=== PATIENT | female | born 1950 | race Caucasian/White ===

== ENCOUNTER 2023-01-28 13:15 | Inpatient (IN) | payer MEDICARE, OTHER ==
[2023-01-28] MEDS ORDERED: NALOXONE 0.4 MG/ML 1 ML VIAL IV PRN (17:05)
[2023-01-28] MEDS ORDERED: NALOXONE 0.4 MG/ML 1 ML VIAL IVP PRN (17:12)
[2023-01-28] MEDS ORDERED: ACETAMINOPHEN TAB 325 MG TAB PO PRN (17:12)
[2023-01-28] MEDS ORDERED: ALBUTEROL NEBULIZED 2.5 MG/3 ML INHALATION PRN (17:12)
[2023-01-28 17:29] LABS: ABG Base Excess 24.2 mmol/L; ABG Oxygen Saturation 78.4 % (94-97); ABG PCO2 66 mmHg (35-45); ABG PH 7.47 (7.35-7.45); ABG TCO2 50 mmol/L (19-24); Allen Test Performed? Yes
[2023-01-28] MEDS ORDERED: FUROSEMIDE 10 MG/ML 4 ML VIAL IV STA (17:35)
[2023-01-28 17:36] LABS: ABG PO2 40 mmHg (83-108)
[2023-01-28 17:37] LABS: ABG HCO3 48 mmol/L (21-25)
--- NOTE | 2023-01-28 18:05 | P.HPIM ---
History of Present Illness H&P Date: 01/28/23 Chief Complaint: Obtunded, hypoxia, dyspnea 72-year-old woman with medical history of COPD with chronic respiratory failure requiring 3-4 L nasal cannula, CHF, Parkinson's disease, hypertension, hyperlipidemia presented a [facility] with dyspnea. Patient was admi tted to [facility] in 01/26 with hypercarbic respiratory failure from presumed COPD exacerbation versus CHF exacerbation. At that time, there workup demonstrated a chest x-ray with pulmonary edema, normal troponin and baseline EKG and a negative respiratory viral panel. Patient was subsequent started on 40 mg of Lasix IV twice a day, steroids, DuoNeb's. On 01/27, patient had some improvement and reported dyspnea, however, today, patient was noted to be increasingly obtunded. Therefore, provider in the outside facility repeated ABG which demonstrate a pH of 7.35, pCO2 of 85. Patient was subsequently started on BiPAP at 12/5 with an FiO2 of 50%, and our facility was contacted for transfer for further management. Patient also had a repeat chest x-ray which showed findings of ongoing pulmonary edema consistent with admission chest x-ray. Patient could not participate in review of systems due to obtundation. Upon my evaluation, patient was hemodynamically stable, but obtunded. ABG was ordered which showed a pH of 7.46, pCO2 of 66, pO2 of 39, however, while the ABG was running, it was noted by respiratory therapy that patient's oxygen had not been connected appropriately and she had been essentially on room air since her arrival proximally one hour before. Patient was subsequently resumed on BiPAP at an FiO2 of 50%, 12/5 and was pulling tidal volumes between 250 and 350. Review of systems could not be completed due to patient's mental status Gen: in distress from dyspnea Eyes: PERRL, no scleral injection or icterus HENT: normocephalic, atraumatic, good hearing acuity, moist mucous membranes Neck: no tracheal deviation, full range of motion Resp: Impaired air exchange, tachypnea, accessory muscle use, bilateral diffuse crackles CVS: good distal perfusion x 4, no pitting edema, regular rate and rhythm without murmurs GI: soft, NTTP, ND, no hepatosplenomegaly : no suprapubic tenderness, no CVAT, garg catheter not present MSK: no clubbing, no cyanosis, no noted contractures of extremities Skin: no noted rashes, petechiae; temperature of skin is appropriate Neuro: moving all extremities without signs of weakness, CN II-XII intact Labs and imaging as above Assessment: Acute hypoxemic and hypercarbic respiratory failure superimposed on chronic hypoxemic and hypercarbic respiratory failure Acute on chronic congestive heart failure exacerbation, ejection fraction unknown COPD with mild exacerbation Hypertension Hyperlipidemia Parkinson's disease Plan: Vital signs reviewed and noted in HPI Lab work from [facility] was reviewed, notable findings included a CBC with a white blood cell count that is normal, platelets are normal, hemoglobin of 9.2. Chemistries were notable for hypernatremia to 149-150, no evidence of kidney dysfunction. Liver function tests are unremarkable. Prior ABGs were reviewed as well, and [facility] in 01/28 AM, pH was 7.35, pCO2 is 85, pO2 was 64 just prior to patient being placed on BiPAP. Chest x-ray reports on 01/26 and 01/28 reviewed from [facility] and findings were noted in HPI EKG in the outlying facility was personally interpreted and I noted sinus rhythm with bradycardia and with no evidence of ischemia. I placed an order for a stat repeat chest x-ray, the images returned to my personal interpretation is that there is right hemidiaphragmatic paralysis with diffuse interstitial infiltrates and alveolar infiltrates as well as increased pulmonary vascularity, cardiomegaly consistent with heart failure exacerbation CBC, basic metabolic panel, hepatic function tests, PT/PTT/INR, magnesium, lactic acid, pro-calcitonin, BNP orders were placed stat I discussed the case with the provider and [facility] and agreed with the need to escalate patient's care to our facility for further management of her worsening hypercarbic and hypoxemic respiratory failure as well as obtundation I gave an additional dose of Lasix 40 mg IV once, and started Lasix 40 mg IV twice a day I started the patient on every 4 hours DuoNeb's I started the patient on prednisone 40 mg daily I started the patient on BiPAP at 12/ with an FiO2 of 50% I placed orders for Garg catheter insertion with strict intake/uptake and daily weights Placed orders for echocardiogram I consulted pulmonology Patient is full code Patient's condition warranted 45 minutes of critical care time. Medications and Allergies Allergies Allergy/AdvReac Type Severity Reaction Status Date / Time carbidopa [From Sinemet] Allergy Unknown Verified 01/28/23 17:23 codeine Allergy Unknown Verified 01/28/23 17:23 levodopa [From Sinemet] Allergy Unknown Verified 01/28/23 17:23 Penicillins Allergy Unknown Verified 01/28/23 17:22 Physical Exam Osteopathic Statement: *. No significant issues noted on an osteopathic structural exam other than those noted in the History and Physical/Consult. Vitals: Vital Signs FiO2 01/28/23 17:30 50 01/28/23 17:08 50 Intake and Output 01/28/23 01/28/23 01/28/23 06:59 14:59 22:59 Other: Weight 72.4 kg Results Labs: Abnormal Lab Results - Last 24 Hours (Table) 01/28/23 Range/Units 17:26 ABG pH 7.47 H (7.35-7.45) ABG pCO2 66 H (35-45) mmHg ABG pO2 40 L* (83-108) mmHg ABG HCO3 48 H* (21-25) mmol/L ABG Total CO2 50 H (19-24) mmol/L ABG O2 Saturation 78.4 L (94-97) %
--- NOTE | 2023-01-28 18:21 | XR ---
EXAMINATION TYPE: XR chest 1V DATE OF EXAM: 01/28/2023 6:03 PM COMPARISON: Chest radiographs from TECHNIQUE: XR chest 1V . CLINICAL INDICATION:Female, 72 years old with history of respiratory failure; FINDINGS: Lungs/Pleura: Prominent interstitial lung markings are seen scattered throughout the lungs. Hazy appe arance of the right lung base and left upper lobe. No sizable pleural effusion or pneumothorax. Event ration of the right hemidiaphragm. Pulmonary vascularity: Unremarkable. Heart/mediastinum: Cardiomediastinal silhouette is prominent in size. Atherosclerotic calcifications are seen in the aorta. Musculoskeletal: Degenerative changes of the acromioclavicular and shoulder joints bilaterally. Degen erative changes of the thoracic spine. IMPRESSION: Multifocal airspace opacities concerning for pneumonia.
[2023-01-28 18:30] LABS: Basophils % (A) 0 %; Eosinophils % (A) 0 %; HGB 8.9 gm/dL (11.4-16.0); Hypochromasia Moderate; Lymphocytes # (A) 0.6 k/uL (1.0-4.8); Lymphocytes % (A) 9 %; MCH 28.5 pg (25.0-35.0); MCHC 30.8 g/dL (31.0-37.0); MCV 92.5 fL (80.0-100.0); Mean Platelet Volume 9.8; Monocytes # (A) 0.2 k/uL (0-1.0); Monocytes % (A) 3 %; Neutrophils # (A) 5.5 k/uL (1.3-7.7); Neutrophils % (A) 86 %; Platelet Count 166 k/uL (150-450); RBC 3.13 m/uL (3.80-5.40); RDW 14.2 % (11.5-15.5); WBC 6.4 k/uL (3.8-10.6)
[2023-01-28 18:38] LABS: ALT 16 U/L (4-34); AST 17 U/L (14-36); African American GFR (CKD) >90 (>60 ml/min/1.73 sqM); Albumin 3.2 g/dL (3.5-5.0); Alkaline Phosphatase 81 U/L (38-126); Bilirubin, Delta 0.2 mg/dL (0.0-0.2); Bilirubin,Unconjugated 0.1 mg/dL (0.0-1.1); Blood Urea Nitrogen 21 mg/dL (7-17); Calcium 8.2 mg/dL (8.4-10.2); Chloride 95 mmol/L (98-107); Glucose 126 mg/dL (74-99); Magnesium 2.1 mg/dL (1.6-2.3); Non-African American GFR(CKD) 89 (>60 ml/min/1.73 sqM); Sodium 144 mmol/L (137-145); Total Bilirubin 0.3 mg/dL (0.2-1.3); Total Protein 5.6 g/dL (6.3-8.2)
[2023-01-28 18:44] LABS: Partial Thromboplastin Time 22.5 sec (22.0-30.0); Prothrombin Time 10.8 sec (9.0-12.0)
[2023-01-28 18:45] LABS: Anion Gap 3 mmol/L
[2023-01-28 18:47] LABS: Carbon Dioxide 46 mmol/L (22-30)
[2023-01-28] MEDS ORDERED: IPRATROPIUM-ALBUTEROL 3 ML NEB INHALATION SCH (20:00)
[2023-01-28] MEDS: SYMBICORT 160-4.5 MCG INHALER INHALATION SCH (20:24)
[2023-01-28 20:29] LABS: Glucose,Whole Blood 115 mg/dL (70-110)
[2023-01-29] MEDS: HYDROcodone/APAP 5-325MG 1 EACH TAB PO SCH ×3 (02:02→21:15)
[2023-01-29] MEDS: FUROSEMIDE 10 MG/ML 4 ML VIAL IV SCH ×3 (02:28→21:14)
[2023-01-29] MEDS: HEPARIN SODIUM,PORCINE/PF 5,000 UNIT/0.5 ML SYRINGE SQ SCH ×3 (02:29→15:15)
[2023-01-29 06:51] LABS: Basophils # (A) 0.1 k/uL (0-0.2); Basophils % (A) 1 %; Eosinophils % (A) 0 %; HCT 29.5 % (34.0-46.0); HGB 9.2 gm/dL (11.4-16.0); Hypochromasia Moderate; Lymphocytes # (A) 1.2 k/uL (1.0-4.8); Lymphocytes % (A) 16 %; MCH 28.3 pg (25.0-35.0); MCV 91.2 fL (80.0-100.0); Mean Platelet Volume 9.3; Monocytes # (A) 0.6 k/uL (0-1.0); Monocytes % (A) 7 %; Neutrophils # (A) 5.7 k/uL (1.3-7.7); Neutrophils % (A) 75 %; Platelet Count 178 k/uL (150-450); RBC 3.24 m/uL (3.80-5.40); RDW 14.2 % (11.5-15.5); WBC 7.6 k/uL (3.8-10.6)
[2023-01-29 07:04] LABS: ALT 14 U/L (4-34); AST 16 U/L (14-36); African American GFR (CKD) >90 (>60 ml/min/1.73 sqM); Albumin 3.2 g/dL (3.5-5.0); Alkaline Phosphatase 84 U/L (38-126); Blood Urea Nitrogen 20 mg/dL (7-17); Calcium 8.1 mg/dL (8.4-10.2); Chloride 94 mmol/L (98-107); Glucose 81 mg/dL (74-99); Non-African American GFR(CKD) 82 (>60 ml/min/1.73 sqM); Potassium 3.4 mmol/L (3.5-5.1); Sodium 143 mmol/L (137-145); Total Bilirubin 0.5 mg/dL (0.2-1.3); Total Protein 5.5 g/dL (6.3-8.2)
[2023-01-29 07:10] LABS: Anion Gap 2 mmol/L
[2023-01-29 07:13] LABS: Carbon Dioxide 47 mmol/L (22-30)
[2023-01-29] MEDS ORDERED: polyethylene glycoL 3350 17 GM POWD.PACK PO PRN (07:59)
[2023-01-29] MEDS ORDERED: FLUTICASONE 50MCG/SPRAY NASAL 16GM EA NOSTRIL PRN (07:59)
[2023-01-29] MEDS: SYMBICORT 160-4.5 MCG INHALER INHALATION SCH ×2 (08:42→20:44)
[2023-01-29] MEDS: ALBUTEROL HFA INHALER INHALATION PRN ×4 (08:57→20:44)
[2023-01-29] MEDS ORDERED: AZITHROMYCIN 500 MG TAB PO SCH (09:00)
[2023-01-29] MEDS: CHOLECALCIFEROL 25 MCG (1000 IU) TABLET PO SCH (09:13)
[2023-01-29] MEDS: ISOSORBIDE MONONITRATE ER 30 MG TAB.ER.24H PO SCH (09:13)
[2023-01-29] MEDS: ATORVASTATIN 40 MG TAB PO SCH (09:14)
[2023-01-29] MEDS: predniSONE 20 MG TAB PO SCH (09:14)
[2023-01-29] MEDS: carvediloL 12.5 MG TAB PO SCH ×2 (09:17→17:01)
--- NOTE | 2023-01-29 09:46 | P.PN ---
Subjective Progress Note Date: 01/29/23 Patient is doing well today, breathing has significantly improved, mentation and obtundation has significantly improved. Gen: awake, alert HEENT: normocephalic, atraumatic, good hearing acuity, moist mucous membranes Resp: good air exchange, breathing comfortably with no accessory muscle use CVS: good distal perfusion x 4, GI: soft, NTTP, ND : no SPT, no CVAT, garg catheter is present MSK: no pitting edema, no clubbing Neuro: non-focal, moving all extremities Psych: cooperative, euthymic [facility] Hospital course: 72-year-old woman with medical history of COPD with chronic respiratory failure requiring 3-4 L nasal cannula, CHF, Parkinson's disease, hypertension, hyperli pidemia presented a [facility] with dyspnea. Patient was admitted to [facility] in 01/26 with hypercarbic respiratory failure from presumed COPD exacerbation versus CHF exacerbation. At that time, there workup demonstrated a chest x-ray with pulmonary edema, normal troponin and baseline EKG and a negative respiratory viral panel. Patient was subsequent started on 40 mg of Lasix IV twice a day, steroids, DuoNeb's. On 01/27, patient had some improvement and reported dyspnea, however, today, patient was noted to be increasingly obtunded. Therefore, provider in the outside facility repeated ABG which demonstrate a pH of 7.35, pCO2 of 85. Patient was subsequently started on BiPAP at 12/5 with an FiO2 of 50%, and our facility was contacted for transfer for further management. Patient also had a repeat chest x-ray which showed findings of ongoing pulmonary edema consistent with admission chest x-ray. Upon initial evaluation, patient was hemodynamically stable, but obtunded. ABG was ordered which showed a pH of 7.46, pCO2 of 66, pO2 of 39, however, while the ABG was running, it was noted by respiratory therapy that patient's oxygen had not been connected appropriately and she had been essentially on room air since her arrival proximally one hour before. Patient was subsequently resumed on BiPAP at an FiO2 of 50%, 12/5 and was pulling tidal volumes between 250 and 350. Assessment: Acute hypoxemic and hypercarbic respiratory failure superimposed on chronic hypoxemic and hypercarbic respiratory failure Acute on chronic congestive heart failure exacerbation, ejection fraction unknown COPD with mild exacerbation Hypertension Hyperlipidemia Parkinson's disease Plan: Vital signs reviewed, patient is afebrile, 176/66, heart rate 68, 93% on 3 L nasal cannula CBC shows anemia down to 9.2, this is stable. Chemistries show potassium of 3.4, chloride of 94, bicarbonate 47, urine of 20, creatinine 0.74, these are stable from admission. Liver function tests showed a low total protein of 5.5, low albumin at 3.2. Pro-calcitonin is 0.07. BNP was 1540. CBC, basic metabolic panel, magnesium replaced for tomorrow Continue Lasix 40 mg IV twice a day Continue patient on every 4 hours DuoNeb's Continue patient on prednisone 40 mg daily Placed orders for echocardiogram, pending Pulmonology consult pending Patient is DO NOT RESUSCITATE/DO NOT INTUBATE Objective - Vital Signs Vital signs: Vital Signs Temp 98.7 F 01/29/23 04:00 Pulse 68 01/29/23 04:00 Resp 26 H 01/29/23 04:00 BP 176/66 01/29/23 04:00 Pulse Ox 96 01/28/23 20:00 FiO2 50 01/29/23 08:48 Intake & Output 01/28/23 01/29/23 01/29/23 18:59 06:59 18:59 Intake Total 20 40 Output Total 1850 1580 Balance 20 -1810 -1580 Weight 72.4 kg 79 kg Intake: IV 20 40 Invasive Line 1 10 20 Invasive Line 2 10 20 Output: Urine 1850 1580 Other: Voiding Method Indwelling Catheter Indwelling Catheter - Labs CBC & Chem 7: 01/29/23 05:19 01/29/23 05:19 Labs: Abnormal Lab Results - Last 24 Hours (Table) 01/28/23 01/28/23 01/28/23 Range/Units 17:26 18:12 18:12 RBC 3.13 L (3.80-5.40) m/uL Hgb 8.9 L (11.4-16.0) gm/dL Hct 29.0 L (34.0-46.0) % MCHC 30.8 L (31.0-37.0) g/dL Lymphocytes # 0.6 L (1.0-4.8) k/uL ABG pH 7.47 H (7.35-7.45) ABG pCO2 66 H (35-45) mmHg ABG pO2 40 L* (83-108) mmHg ABG HCO3 48 H* (21-25) mmol/L ABG Total CO2 50 H (19-24) mmol/L ABG O2 Saturation 78.4 L (94-97) % Potassium (3.5-5.1) mmol/L Chloride 95 L (98-107) mmol/L Carbon Dioxide 46 H* (22-30) mmol/L BUN 21 H (7-17) mg/dL Glucose 126 H (74-99) mg/dL POC Glucose (mg/dL) (70-110) mg/dL Plasma Lactic Acid Juan (0.7-2.0) mmol/L Calcium 8.2 L (8.4-10.2) mg/dL Total Protein 5.6 L (6.3-8.2) g/dL Albumin 3.2 L (3.5-5.0) g/dL 01/28/23 01/28/23 01/29/23 Range/Units 18:12 20:27 05:19 RBC 3.24 L (3.80-5.40) m/uL Hgb 9.2 L (11.4-16.0) gm/dL Hct 29.5 L (34.0-46.0) % MCHC (31.0-37.0) g/dL Lymphocytes # (1.0-4.8) k/uL ABG pH (7.35-7.45) ABG pCO2 (35-45) mmHg ABG pO2 (83-108) mmHg ABG HCO3 (21-25) mmol/L ABG Total CO2 (19-24) mmol/L ABG O2 Saturation (94-97) % Potassium (3.5-5.1) mmol/L Chloride (98-107) mmol/L Carbon Dioxide (22-30) mmol/L BUN (7-17) mg/dL Glucose (74-99) mg/dL POC Glucose (mg/dL) 115 H (70-110) mg/dL Plasma Lactic Acid Juan 0.5 L (0.7-2.0) mmol/L Calcium (8.4-10.2) mg/dL Total Protein (6.3-8.2) g/dL Albumin (3.5-5.0) g/dL 01/29/23 Range/Units 05:19 RBC (3.80-5.40) m/uL Hgb (11.4-16.0) gm/dL Hct (34.0-46.0) % MCHC (31.0-37.0) g/dL Lymphocytes # (1.0-4.8) k/uL ABG pH (7.35-7.45) ABG pCO2 (35-45) mmHg ABG pO2 (83-108) mmHg ABG HCO3 (21-25) mmol/L ABG Total CO2 (19-24) mmol/L ABG O2 Saturation (94-97) % Potassium 3.4 L (3.5-5.1) mmol/L Chloride 94 L (98-107) mmol/L Carbon Dioxide 47 H* (22-30) mmol/L BUN 20 H (7-17) mg/dL Glucose (74-99) mg/dL POC Glucose (mg/dL) (70-110) mg/dL Plasma Lactic Acid Juan (0.7-2.0) mmol/L Calcium 8.1 L (8.4-10.2) mg/dL Total Protein 5.5 L (6.3-8.2) g/dL Albumin 3.2 L (3.5-5.0) g/dL
--- NOTE | 2023-01-29 10:34 | CA ---
Transthoracic Echo Report Name: Jasmin Gonzalez Age: 72 Gender: F : 1950 Exam Date: 01/29/2023 07:27 Exam Location: [facility] Ht (in): 65 Wt (lb): 174 Ordering Physician: Adam Cummings MD Attending/Referring Phys: Pediatric Pathologist Bianca Lynn RDCS Procedure CPT: Indications: volume overload Cardiac Hx: Technical Quality: Fair Contrast 1: Total Dose (mL): Contrast 2: Total Dose (mL): MEASUREMENTS (Male / Female) Normal Values 2D ECHO LV Diastolic Diameter PLAX 4.8 cm 4.2 - 5.9 / 3.9 - 5.3 cm LV Systolic Diameter PLAX 3.6 cm IVS Diastolic Thickness 1.3 cm 0.6 - 1.0 / 0.6 - 0.9 cm LVPW Diastolic Thickness 1.2 cm 0.6 - 1.0 / 0.6 - 0.9 cm LV Relative Wall Thickness 0.5 RV Internal Dim ED PLAX 3.6 cm LA Systolic Diameter LX 3.1 cm 3.0 - 4.0 / 2.7 - 3.8 cm LV Diastolic Volume MOD 4C 161.6 cm??? LV Systolic Volume MOD 4C 79.6 cm??? LV Ejection Fraction MOD 4C 50.7 % LV Diastolic Length 4C 8.7 cm LV Systolic Length 4C 7.1 cm LV Diastolic Volume MOD 2C 97.2 cm??? LV Systolic Volume MOD 2C 49.0 cm??? LV Ejection Fraction MOD 2C 49.6 % LV Diastolic Length 2C 8.5 cm LV Systolic Length 2C 6.8 cm LA Volume 57.2 cm??? 18 - 58 / 22 - 52 cm??? M-MODE Aortic Root Diameter MM 2.8 cm MV E Point Septal Separation 0.8 cm AV Cusp Separation MM 1.9 cm DOPPLER AV Peak Velocity 148.2 cm/s AV Peak Gradient 8.8 mmHg MV Area PHT 2.5 cm??? Mitral E Point Velocity 112.5 cm/s Mitral A Point Velocity 119.5 cm/s Mitral E to A Ratio 0.9 MV Deceleration Time 298.7 ms MV E' Velocity 7.0 cm/s Mitral E to MV E' Ratio 16.1 TR Peak Velocity 291.0 cm/s TR Peak Gradient 33.9 mmHg Right Ventricular Systolic Press 38.1 mmHg FINDINGS Left Ventricle Left ventricular ejection fraction is estimated at 50-55 %. Normal left ventricular systolic function with no obvious regional wall motion abnormalities. Left ventricular cavity size normal. Mild concentric left ventricular hypertrophy. Right Ventricle Mild right ventricular dilatation. Mild pulmonary hypertension. Right Atrium Normal right atrial size. Left Atrium Mildly increased left atrial volume. Mitral Valve Mitral valve thickened. Mitral annular calcification. Aortic Valve Trileaflet aortic valve. No aortic valve stenosis or regurgitation. Tricuspid Valve Structurally normal tricuspid valve. Mild tricuspid regurgitation. Pulmonic Valve Structurally normal pulmonic valve. Pericardium Normal pericardium. No pericardial effusion. Aorta Normal size aortic root and proximal ascending aorta. CONCLUSIONS Normal left ventricular dimension and systolic function Mild to moderate mitral regurgitation Trileaflet aortic valve was no stenosis or regurgitation Previewed by: Dr. Joni Scott MD (Electronically Signed) Final Date: 29 January 2023 10:33
[2023-01-29] MEDS ORDERED: Potassium Replacement Protocol 1 EACH MISC MISCELLANE PRN (10:48)
[2023-01-29] MEDS: POTASSIUM CHLORIDE ER 20 MEQ TAB.ER PO SCH ×2 (11:53→13:41)
--- NOTE | 2023-01-29 12:54 | P.CNPUL ---
History of Present Illness Consult date: 01/29/23 Requesting physician: Adam Cummings Reason for consult: dyspnea, COPD Chief complaint: Shortness of breath History of present illness: This is a 72-year-old female known history of COPD, no history of chronic hypoxic respiratory failure, maintaining traction at home at 3-4 L via nasal cannula. History of hypertension, Parkinson's disease, patient lives in [place], she is not being followed by pulmonary specialists. Few days ago, the patient was admitted to [facility] with mostly symptoms of shortness of breath and cough. Patient was found to have congestive heart failure based on her chest x-ray/pulmonary edema. Patient was treated with diuretics, steroids, and bronchodilators. While at [facility], patient developed worsening obtundation, and worsening hypercapnia. Her pCO2 was as high as 85, however her pH remained relatively acceptable in the range of 7.35. Patient was transferred to our facility at [facility], upon admission she was placed on BiPAP, with significant improvement in her pCO2 down to 66, with a pH of 7.47. Based on her blood gases, the patient obviously has chronic hypercapnia with excellent metabolic compensation, her bicarb is 47 today on the electrolytes. Chest x-ray showed evidence of congestive heart failure, pro-calcitonin was 0.07, no evidence of pneumonia. No evidence of leukocytosis on her CBC. Clinically the patient is responding well to treatment with bronchodilators and to treatment with diuretics. BNP level on admission was 1540 Review of Systems Constitutional: Negative HEENT: Negative Pulmonary: As noted in HPI Cardiac: As noted in HPI Hematologic: Negative GI: Negative Genitourinary: Negative Musculoskeletal: Negative Psychiatric: Negative Neurologic: Negative Skin: Endocrine: Negative Past Medical History Past Medical History: Heart Failure, COPD, CVA/TIA, Hyperlipidemia, Myocardial Infarction (DC) Additional Past Medical History / Comment(s): Parkinsons, COPD, 3.5LNC at home, quit smoking 2012, anxiety depression, chronic C02 retainer Last Myocardial Infarction Date:: 2012 History of Any Multi-Drug Resistant Organisms: None Reported Past Surgical History: Cholecystectomy, Heart Catheterization With Stent, Tonsillectomy Past Anesthesia/Blood Transfusion Reactions: No Reported Reaction Date of Last Stent Placement:: 2012 Smoking Status: Former smoker - Past Family History Father Family Medical History: Unable to Obtain Mother Family Medical History: Unable to Obtain Medications and Allergies Home Medications Medication Instructions Recorded Confirmed Type Albuterol Inhaler [Ventolin Hfa 1 - 2 puff INHALATION RT-Q6H PRN 01/28/23 01/28/23 History Inhaler] Atorvastatin [Lipitor] 40 mg PO DAILY 01/28/23 01/28/23 History Cholecalciferol [Vitamin D3 (25 50 mcg PO DAILY 01/28/23 01/28/23 History Mcg = 1000 Iu)] Fluticasone Nasal [place] [Flonase 1 spray EA NOSTRIL DAILY PRN 01/28/23 01/28/23 History Nasal [place]] Furosemide [Lasix] 40 mg PO DAILY 01/28/23 01/28/23 History HYDROcodone/APAP 5-325MG [[place] 1 tab PO Q8H 01/28/23 01/28/23 History 5-325] Ibuprofen [Motrin Ib] 600 mg PO Q6H PRN 01/28/23 01/28/23 History Isosorbide Mononitrate ER [Imdur] 30 mg PO DAILY 01/28/23 01/28/23 History Nitroglycerin Sl Tabs [Nitrostat] 0.4 mg SUBLINGUAL Q5M PRN 01/28/23 01/28/23 History Pregabalin [Lyrica] 150 mg PO HS 01/28/23 01/28/23 History carvediloL [Coreg] 12.5 mg PO BID 01/28/23 01/28/23 History polyethylene glycoL 3350 [Miralax] 17 gm PO TID PRN 01/28/23 01/28/23 History rOPINIRole HCL [Requip] 0.5 mg PO QID 01/28/23 01/28/23 History Allergies Allergy/AdvReac Type Severity Reaction Status Date / Time carbidopa [From Sinemet] Allergy Unknown Verified 01/28/23 20:31 codeine Allergy Unknown Verified 01/28/23 20:31 levodopa [From Sinemet] Allergy Unknown Verified 01/28/23 20:31 Penicillins Allergy Unknown Verified 01/28/23 20:31 Physical Exam Vitals: Vital Signs Temp Pulse Resp BP Pulse Ox FiO2 01/29/23 12:00 98.4 F 52 L 20 113/56 90 L 01/29/23 08:48 50 01/29/23 08:00 98.6 F 65 22 176/79 01/29/23 04:00 98.7 F 68 26 H 176/66 01/29/23 03:51 50 01/29/23 02:00 69 24 01/29/23 00:00 98.5 F 69 24 184/67 01/28/23 23:30 50 01/28/23 20:24 50 01/28/23 20:00 97.8 F 58 L 24 172/113 96 01/28/23 18:39 91 L 50 01/28/23 18:32 98.6 F 64 26 H 145/78 88 L 01/28/23 17:30 50 01/28/23 17:08 50 Intake and Output 01/28/23 01/29/23 01/29/23 22:59 06:59 14:59 Intake Total 40 20 118 Output Total 0682 190 2138 Balance -9237 -227 -9893 Intake: IV 40 20 Invasive Line 1 20 10 Invasive Line 2 20 10 Oral 118 Output: Urine 9649 964 8924 Other: Voiding Method Indwelling Catheter Indwelling Catheter Indwelling Catheter Weight 72.4 kg 79 kg Physical Exam: Revealed a 72-year-old female in no distress, presently on 3 L nasal cannula, O2 saturation is 90% BiPAP is at bedside set at 12/5/50% Head: Atraumatic, normocephalic. HEENT:[Neck is supple.] [No neck masses.] [No thyromegaly.] [No JVD.] Chest: Symmetrical chest expansion, diminished breath sounds at the bases with crackles bilaterally. Cardiac Exam: Distant S1 and S2. no S3 gallop, no murmur.] Abdomen: [Soft, nontender, no megaly, no rebound, no guarding, normal bowel sounds.] Extremities: [No clubbing, no edema, no cyanosis.] Neurological Exam: [No focal neurologic deficit.] Alert oriented 3. Psychiatric: Normal mood affect and normal mental status examination. Skin: No rashes. Results - Laboratory Findings CBC and BMP: 01/29/23 05:19 01/29/23 05:19 ABG ABG pH 7.47 (7.35-7.45) H 01/28/23 17:26 ABG pCO2 66 mmHg (35-45) H 01/28/23 17:26 ABG pO2 40 mmHg (83-108) L* 01/28/23 17:26 ABG O2 Saturation 78.4 % (94-97) L 01/28/23 17:26 PT/INR, D-dimer PT 10.8 sec (9.0-12.0) 01/28/23 18:12 INR 1.0 (<1.2) 01/28/23 18:12 Abnormal lab findings: Abnormal Labs 01/28/23 01/28/23 01/28/23 17:26 18:12 18:12 RBC 3.13 L Hgb 8.9 L Hct 29.0 L MCHC 30.8 L Lymphocytes # 0.6 L ABG pH 7.47 H ABG pCO2 66 H ABG pO2 40 L* ABG HCO3 48 H* ABG Total CO2 50 H ABG O2 Saturation 78.4 L Potassium Chloride 95 L Carbon Dioxide 46 H* BUN 21 H Glucose 126 H POC Glucose (mg/dL) Plasma Lactic Acid Juan Calcium 8.2 L Total Protein 5.6 L Albumin 3.2 L 01/28/23 01/28/23 01/29/23 18:12 20:27 05:19 RBC 3.24 L Hgb 9.2 L Hct 29.5 L MCHC Lymphocytes # ABG pH ABG pCO2 ABG pO2 ABG HCO3 ABG Total CO2 ABG O2 Saturation Potassium Chloride Carbon Dioxide BUN Glucose POC Glucose (mg/dL) 115 H Plasma Lactic Acid Juan 0.5 L Calcium Total Protein Albumin 01/29/23 05:19 RBC Hgb Hct MCHC Lymphocytes # ABG pH ABG pCO2 ABG pO2 ABG HCO3 ABG Total CO2 ABG O2 Saturation Potassium 3.4 L Chloride 94 L Carbon Dioxide 47 H* BUN 20 H Glucose POC Glucose (mg/dL) Plasma Lactic Acid Juan Calcium 8.1 L Total Protein 5.5 L Albumin 3.2 L - Diagnostic Findings Chest x-ray: image reviewed (As noted in HPI) Assessment and Plan Assessment: Impression: Acute on chronic hypoxic and hypercapnic respiratory failure, secondary to underlying COPD and COPD exacerbation as well as underlying acute congestive heart failure. Ejection fraction is presently unknown. Benign essential hypertension Acute exacerbation of COPD Dyslipidemia History of Parkinson's disease Acute metabolic encephalopathy secondary to CO2 narcosis. Recommendation: Recommendation: Agree with the present treatment plan including diuretics, bronchodilators, Continue oral prednisone and titrate over the next couple of weeks. Use BiPAP as needed and titrate FiO2 accordingly Continue to monitor daily I's and O's Check echocardiogram for LV function Continue updrafts Continue Symbicort Continue GI and DVT prophylaxis Discontinue antibiotics, since pro calcitonin level is 0.07 We will continue to follow Time with Patient: Greater than 30
[2023-01-29] MEDS: PREGABALIN 75 MG CAP PO SCH (21:15)
[2023-01-30] MEDS: HEPARIN SODIUM,PORCINE/PF 5,000 UNIT/0.5 ML SYRINGE SQ SCH ×3 (06:04→18:09)
[2023-01-30 06:09] LABS: Basophils % (A) 1 %; Eosinophils # (A) 0.1 k/uL (0-0.7); Eosinophils % (A) 1 %; HCT 31.1 % (34.0-46.0); HGB 9.7 gm/dL (11.4-16.0); Hypochromasia Slight; Lymphocytes # (A) 1.4 k/uL (1.0-4.8); Lymphocytes % (A) 25 %; MCH 28.4 pg (25.0-35.0); MCHC 31.3 g/dL (31.0-37.0); MCV 90.9 fL (80.0-100.0); Mean Platelet Volume 9.1; Monocytes # (A) 0.4 k/uL (0-1.0); Monocytes % (A) 8 %; Neutrophils # (A) 3.6 k/uL (1.3-7.7); Neutrophils % (A) 64 %; Platelet Count 179 k/uL (150-450); RBC 3.42 m/uL (3.80-5.40); RDW 14.1 % (11.5-15.5); WBC 5.7 k/uL (3.8-10.6)
[2023-01-30 06:27] LABS: Chloride 94 mmol/L (98-107)
[2023-01-30 06:29] LABS: African American GFR (CKD) >90 (>60 ml/min/1.73 sqM); Blood Urea Nitrogen 22 mg/dL (7-17); Calcium 8.3 mg/dL (8.4-10.2); Glucose 83 mg/dL (74-99); Magnesium 2.1 mg/dL (1.6-2.3); Non-African American GFR(CKD) 88 (>60 ml/min/1.73 sqM); Potassium 3.7 mmol/L (3.5-5.1); Sodium 141 mmol/L (137-145)
[2023-01-30 06:36] LABS: Anion Gap 2 mmol/L
[2023-01-30 06:41] LABS: Carbon Dioxide 45 mmol/L (22-30)
[2023-01-30] MEDS: HYDROcodone/APAP 5-325MG 1 EACH TAB PO SCH ×3 (06:53→18:10)
[2023-01-30] MEDS: carvediloL 12.5 MG TAB PO SCH ×2 (06:54→18:09)
--- NOTE | 2023-01-30 07:22 | XR ---
EXAMINATION TYPE: XR chest 1V portable DATE OF EXAM: 01/30/2023 7:05 AM COMPARISON: Chest radiographs from 01/28/2023 TECHNIQUE: XR chest 1V portable Portable AP radiograph of the chest. CLINICAL INDICATION:Female, 72 years old with history of CHF; FINDINGS: Lungs/Pleura: The patient's head obscures the right apex. Prominent interstitial lung markings are ag ain seen scattered through the lungs. Blunting of the right costophrenic angle with adjacent airspace opacities. Bandlike opacity within the left midlung. Heart/mediastinum: Cardiomediastinal silhouette is prominent in size. Atherosclerotic calcifications are seen in the aorta. Musculoskeletal: No acute osseous pathology. IMPRESSION: Cardiomegaly, pulmonary vascular congestion and small right pleural effusion. Correlate with BNP for congestive heart failure. Superimposed infectious process is not excluded.
[2023-01-30] MEDS: SYMBICORT 160-4.5 MCG INHALER INHALATION SCH ×2 (08:34→21:07)
[2023-01-30] MEDS: ALBUTEROL HFA INHALER INHALATION PRN ×4 (08:35→21:07)
[2023-01-30] MEDS: ISOSORBIDE MONONITRATE ER 30 MG TAB.ER.24H PO SCH (09:29)
[2023-01-30] MEDS: CHOLECALCIFEROL 25 MCG (1000 IU) TABLET PO SCH (09:29)
[2023-01-30] MEDS: ATORVASTATIN 40 MG TAB PO SCH (09:29)
[2023-01-30] MEDS: predniSONE 20 MG TAB PO SCH (09:29)
[2023-01-30] MEDS: FUROSEMIDE 10 MG/ML 4 ML VIAL IV SCH (09:30)
--- NOTE | 2023-01-30 10:43 | P.PN ---
Subjective Progress Note Date: 01/30/23 Patient is doing well today, patient continues to be weak. Oxygenation has improved to baseline, but has generalized weakness and debility Gen: awake, alert HEENT: normocephalic, atraumatic, good hearing acuity, moist mucous membranes Resp: good air exchange, breathing comfortably with no accessory muscle use CVS: good distal perfusion x 4, GI: soft, NTTP, ND : no SPT, no CVAT, garg catheter is present MSK: no pitting edema, no clubbing Neuro: non-focal, moving all extremities Psych: cooperative, euthymic mood Hospital course: 72-year-old woman with medical history of COPD with chronic respiratory failure requiring 3-4 L nasal cannula, CHF, Parkinson's disease, hypertension, hyperlipidemia presented a [facility] with dyspnea. Patient was admitted to [facility] in 01/26 with hypercarbic respiratory failure from presumed COPD exacerbation versus CHF exacerbation. At that time, there workup demonstrated a chest x-ray with pulmonary edema, normal troponin and baseline EKG and a negative respiratory viral panel. Patient was subsequent st arted on 40 mg of Lasix IV twice a day, steroids, DuoNeb's. On 01/27, patient had some improvement and reported dyspnea, however, today, patient was noted to be increasingly obtunded. Therefore, provider in the outside facility repeated ABG which demonstrate a pH of 7.35, pCO2 of 85. Patient was subsequently started on BiPAP at 12/5 with an FiO2 of 50%, and our facility was contacted for transfer for further management. Patient also had a repeat chest x-ray which showed findings of ongoing pulmonary edema consistent with admission chest x- ray. Upon initial evaluation, patient was hemodynamically stable, but obtunded. ABG was ordered which showed a pH of 7.46, pCO2 of 66, pO2 of 39, however, while the ABG was running, it was noted by respiratory therapy that patient's oxygen had not been connected appropriately and she had been essentially on room air since her arrival proximally one hour before. Patient was subsequently resumed on BiPAP at an FiO2 of 50%, 12/5 and was pulling tidal volumes between 250 and 350. Patient was started on standing DuoNeb nebulizers, prednisone 40 mg daily, azithromycin 500 mg daily, Lasix 40 mg twice a day. By the following day, patient was weaned back to her baseline oxygen requirement of 3 L of nasal cannula but still had dyspnea with minimal exertion. Echocardiogram was completed and demonstrated preserved ejection fraction, mild to moderate mitral regurgitation. Patient's pro-calcitonin return to 0.06, and antibiotics were discontinued. Patient's BNP returned at 1560 consistent with volume overload. Patient was seen by PT/OT who recommended rehab. Assessment: Acute hypoxemic and hypercarbic respiratory failure superimposed on chronic hypoxemic and hypercarbic respiratory failure Acute on chronic congestive heart failure exacerbation, ejection fraction unknown COPD with mild exacerbation Hypertension Hyperlipidemia Parkinson's disease Plan: Today, patient is afebrile, 185/65, heart rate 64, 94% on 3 L nasal cannula. CBC shows hemoglobin of 9.7, otherwise unremarkable, stable from admission. Chemistries show chloride of 94, bicarbonate 45, BUN 22, creatinine of 0.67, improved from admission Magnesium is 2.1. Repeat CBC, basic metabolic panel, magnesium tomorrow Echocardiogram reviewed, mild to moderate mitral regurgitation, normal left ventricular dimension and systolic function Continue Lasix 40 mg IV twice a day Continue patient on every 4 hours DuoNeb's Continue patient on prednisone 40 mg daily Discussed with PT/OT, patient required significant help ambulating the hallway with periods of significant unsteadiness with near syncope, patient would be nefit from rehab inpatient Patient is DO NOT RESUSCITATE/DO NOT INTUBATE Objective - Vital Signs Vital signs: Vital Signs Temp 98.0 F 01/30/23 04:00 Pulse 64 01/30/23 04:00 Resp 18 01/30/23 04:00 BP 185/65 01/30/23 04:00 Pulse Ox 92 L 01/30/23 08:38 FiO2 50 01/29/23 08:48 Intake & Output 01/29/23 01/30/23 01/30/23 18:59 06:59 18:59 Intake Total 1154 100 Output Total 1580 600 Balance -426 -600 100 Weight 68 kg Intake: Oral 1154 100 Output: Urine 1580 600 Other: Voiding Method Indwelling Catheter Indwelling Catheter # Voids 1 - Labs CBC & Chem 7: 01/30/23 05:30 01/30/23 05:30 Labs: Abnormal Lab Results - Last 24 Hours (Table) 01/30/23 01/30/23 Range/Units 05:30 05:30 RBC 3.42 L (3.80-5.40) m/uL Hgb 9.7 L (11.4-16.0) gm/dL Hct 31.1 L (34.0-46.0) % Chloride 94 L (98-107) mmol/L Carbon Dioxide 45 H* (22-30) mmol/L BUN 22 H (7-17) mg/dL Calcium 8.3 L (8.4-10.2) mg/dL
--- NOTE | 2023-01-30 13:30 | P.PN ---
Subjective Progress Note Date: 01/30/23 Principal diagnosis: Acute on chronic hypoxic and hypercapnic respiratory failure, secondary to underlying COPD and COPD exacerbation as well as underlying acute congestive heart failure. This is a 72-year-old female known history of COPD, no history of chronic hypoxic respiratory failure, maintaining traction at home at 3-4 L via nasal cannula. History of hypertension, Parkinson's disease, patient lives in [place], she is not being followed by pulmonary specialists. Few days ago, the patient was admitted to [facility] with mostly symptoms of shortness of breath and cough. Patient was found to have congestive heart failure based on her chest x-ray/pulmonary edema. Patient was treated with diuretics, steroids, and bronchodilators. While at [facility], patient developed worsening obtundation, and worsening hypercapnia. Her pCO2 was as high as 85, however her pH remained relatively acceptable in the range of 7.35. Patient was transferred to our facility at [facility], upon admission she was placed on BiPAP, with significant improvement in her pCO2 down to 66, with a pH of 7.47. Based on her blood gases, the patient obviously has chronic hypercapnia with excellent metabolic compensation, her bicarb is 47 today on the electrolytes. Chest x-ray showed evidence of congestive heart failure, pro-calcitonin was 0.07, no evidence of pneumonia. No evidence of leukocytosis on her CBC. Clinically the patient is responding well to treatment with bronchodilators and to treatment with diuretics. BNP level on admission was 1540 Reevaluated today on 01/30/2023, patient is feeling better today, breathing easier. Daughter is at bedside, patient is on 3 L nasal cannula and O2 sats is 90 ranging between 92 up to 96%. Blood pressure is 122/60, patient is not in any distress, sitting at a bedside chair. WBC is 5.7 hemoglobin is 9.7. Basic metabolic profile is normal except for bicarb of 45. Chest x-ray is showing improvement in her interstitial edema, but she seems to have more right lower lobe atelectasis, overall there is definite improvement in the chest x-ray appearance and in her CHF appearance. Objective - Vital Signs Vital signs: Vital Signs Temp 97.7 F 01/30/23 08:00 Pulse 70 01/30/23 08:00 Resp 20 01/30/23 08:00 BP 122/60 01/30/23 08:00 Pulse Ox 92 L 01/30/23 08:38 FiO2 50 01/29/23 08:48 Intake & Output 01/29/23 01/30/23 01/30/23 18:59 06:59 18:59 Intake Total 1154 100 Output Total 1580 600 Balance -426 -600 100 Weight 68 kg Intake: Oral 1154 100 Output: Urine 1580 600 Other: Voiding Method Indwelling Catheter Indwelling Catheter Indwelling Catheter # Voids 1 - Exam Physical Exam: Revealed a 72-year-old female in no distress, presently on 3 L nasal cannula, Head: Atraumatic, normocephalic. HEENT:[Neck is supple.] [No neck masses.] [No thyromegaly.] [No JVD.] Chest: Symmetrical chest expansion, diminished breath sounds at the bases , no crackles. Cardiac Exam: Distant S1 and S2. no S3 gallop, no murmur.] Abdomen: [Soft, nontender, no megaly, no rebound, no guarding, normal bowel sounds.] Extremities: [No clubbing, no edema, no cyanosis.] Neurological Exam: [No focal neurologic deficit.] Alert oriented 3. Psychiatric: Normal mood affect and normal mental status examination. Skin: No rashes. - Labs CBC & Chem 7: 01/30/23 05:30 01/30/23 05:30 Labs: Abnormal Lab Results - Last 24 Hours (Table) 01/30/23 01/30/23 Range/Units 05:30 05:30 RBC 3.42 L (3.80-5.40) m/uL Hgb 9.7 L (11.4-16.0) gm/dL Hct 31.1 L (34.0-46.0) % Chloride 94 L (98-107) mmol/L Carbon Dioxide 45 H* (22-30) mmol/L BUN 22 H (7-17) mg/dL Calcium 8.3 L (8.4-10.2) mg/dL Assessment and Plan Assessment: Impression: Acute on chronic hypoxic and hypercapnic respiratory failure, secondary to underlying COPD and COPD exacerbation as well as underlying acute congestive heart failure. Preserved LV function ejection fraction of 50-55% Benign essential hypertension Acute exacerbation of COPD Dyslipidemia History of Parkinson's disease Acute metabolic encephalopathy secondary to CO2 narcosis. Resolved. Recommendation: Continue diuretics and bronchodilators. Change Lasix to 40 mg by mouth twice a day Echocardiogram showed good LV function Continue updrafts Continue Symbicort Continue GI and DVT prophylaxis consider discharge planning in the next 24 hours. Follow-up on outpatient basis post discharge. We will continue to follow Time with Patient: Less than 30
[2023-01-30] MEDS: FUROSEMIDE 40 MG TAB PO SCH (18:09)
[2023-01-30] MEDS: PREGABALIN 75 MG CAP PO SCH (21:02)
[2023-01-31] MEDS: HEPARIN SODIUM,PORCINE/PF 5,000 UNIT/0.5 ML SYRINGE SQ SCH ×3 (00:50→17:38)
[2023-01-31] MEDS: HYDROcodone/APAP 5-325MG 1 EACH TAB PO SCH ×3 (00:50→17:37)
[2023-01-31] MEDS ORDERED: INSULIN DETEMIR (LEVEMIR) 100 UNIT/ML SYR SQ SCH (07:15)
[2023-01-31] MEDS: ALBUTEROL HFA INHALER INHALATION PRN ×4 (07:44→21:17)
[2023-01-31] MEDS: SYMBICORT 160-4.5 MCG INHALER INHALATION SCH ×2 (07:44→21:17)
--- NOTE | 2023-01-31 10:54 | P.PN ---
Subjective Progress Note Date: 01/31/23 Patient is requiring bipap and a little more lethargic today. Pending insurance auth for rehab. Gen: awake, alert HEENT: normocephalic, atraumatic, good hearing acuity, moist mucous membranes Resp: good air exchange, breathing comfortably with no accessory muscle use CVS: good distal perfusion x 4, GI: soft, NTTP, ND : no SPT, no CVAT, garg catheter is present MSK: no pitting edema, no clubbing Neuro: non-focal, moving all extremities Psych: cooperative, euthymic mood Hospital course: 72-year-old woman with medical history of COPD with chronic respiratory failure requiring 3-4 L nasal cannula, CHF, Parkinson's disease, hypertension, hyperlipidemia presented a [facility] with dyspnea. Patient was admitted to [facility] in 01/26 with hypercarbic respiratory failure from presumed COPD exacerbation versus CHF exacerbation. At that time, there workup demonstrated a chest x-ray with pulmonary edema, normal troponin and baseline EKG and a negative respiratory viral panel. Patient was subsequent started on 40 mg of Lasix IV twice a day, steroids, DuoNeb's. On 01/27, patient had some improvement and reported dyspnea, however, today, patient was noted to be increasingly obtunded. Therefore, provider in the outside facility repeated ABG which demonstrate a pH of 7.35, pCO2 of 85. Patient was subsequently started on BiPAP at 12/5 with an FiO2 of 50%, and our facility was contacted for transfer for further management. Patient also had a repeat chest x-ray which showed findings of ongoing pulmonary edema consistent with admission chest x- ray. Upon initial evaluation, patient was hemodynamically stable, but obtunded. ABG was ordered which showed a pH of 7.46, pCO2 of 66, pO2 of 39, however, while the ABG was running, it was noted by respiratory therapy that patient's oxygen had not been connected appropriately and she had been essentially on room air since her arrival proximally one hour before. Patient was subsequently res umed on BiPAP at an FiO2 of 50%, 12/5 and was pulling tidal volumes between 250 and 350. Patient was started on standing DuoNeb nebulizers, prednisone 40 mg daily, azithromycin 500 mg daily, Lasix 40 mg twice a day. By the following day, patient was weaned back to her baseline oxygen requirement of 3 L of nasal cannula but still had dyspnea with minimal exertion. Echocardiogram was completed and demonstrated preserved ejection fraction, mild to moderate mitral regurgitation. Patient's pro-calcitonin return to 0.06, and antibiotics were discontinued. Patient's BNP returned at 1560 consistent with volume overload. Patient was seen by PT/OT who recommended rehab. Assessment: Acute hypoxemic and hypercarbic respiratory failure superimposed on chronic hypoxemic and hypercarbic respiratory failure Acute on chronic congestive heart failure exacerbation, ejection fraction unknown COPD with mild exacerbation Hypertension Hyperlipidemia Parkinson's disease Plan: Today, patient is afebrile, 166/74, 74, 97% on BIPAP /, FIO2 50% Repeat CBC, basic metabolic panel, magnesium tomorrow Continue Lasix 40 mg IV twice a day Continue patient on every 4 hours DuoNeb's Continue patient on prednisone 40 mg daily Patient is DO NOT RESUSCITATE/DO NOT INTUBATE Objective - Vital Signs Vital signs: Vital Signs Temp 98 F 01/31/23 04:00 Pulse 74 01/31/23 04:00 Resp 22 01/31/23 05:15 BP 166/74 01/31/23 04:00 Pulse Ox 97 01/31/23 05:15 FiO2 50 01/31/23 07:45 Intake & Output 01/30/23 01/31/23 01/31/23 18:59 06:59 18:59 Intake Total 460 Output Total 400 200 Balance 60 -200 Intake: Oral 460 Output: Urine 400 200 Other: Voiding Method Indwelling Catheter External Catheter # Voids 1 - Labs CBC & Chem 7: 01/30/23 05:30 01/30/23 05:30
[2023-01-31] MEDS: ISOSORBIDE MONONITRATE ER 30 MG TAB.ER.24H PO SCH (11:40)
[2023-01-31] MEDS: FUROSEMIDE 40 MG TAB PO SCH ×2 (11:40→17:37)
[2023-01-31] MEDS: carvediloL 12.5 MG TAB PO SCH ×2 (11:40→17:37)
[2023-01-31] MEDS: predniSONE 20 MG TAB PO SCH (11:40)
[2023-01-31] MEDS: CHOLECALCIFEROL 25 MCG (1000 IU) TABLET PO SCH (11:40)
[2023-01-31] MEDS: ATORVASTATIN 40 MG TAB PO SCH (11:41)
--- NOTE | 2023-01-31 13:30 | P.PN ---
Subjective Progress Note Date: 01/31/23 Principal diagnosis: Acute on chronic hypoxic and hypercapnic respiratory failure, secondary to underlying COPD and COPD exacerbation as well as underlying acute congestive heart failure. This is a 72-year-old female known history of COPD, no history of chronic hypoxic respiratory failure, maintaining traction at home at 3-4 L via nasal cannula. History of hypertension, Parkinson's disease, patient lives in [place], she is not being followed by pulmonary specialists. Few days ago, the patient was admitted to [facility] with mostly symptoms of shortness of breath and cough. Patient was found to have congestive heart failure based on her chest x-ray/pulmonary edema. Patient was treated with diuretics, steroids, and bronchodilators. While at [facility], patient developed worsening obtundation, and worsening hypercapnia. Her pCO2 was as high as 85, however her pH remained relatively acceptable in the range of 7.35. Patient was transferred to our facility at [facility], upon admission she was placed on BiPAP, with significant improvement in her pCO2 down to 66, with a pH of 7.47. Based on her blood gases, the patient obviously has chronic hypercapnia with excellent metabolic compensation, her bicarb is 47 today on the electrolytes. Chest x-ray showed evidence of congestive heart failure, pro-calcitonin was 0.07, no evidence of pneumonia. No evidence of leukocytosis on her CBC. Clinically the patient is responding well to treatment with bronchodilators and to treatment with diuretics. BNP level on admission was 1540 Reevaluated today on 01/30/2023, patient is feeling better today, breathing easier. Daughter is at bedside, patient is on 3 L nasal cannula and O2 sats is 90 ranging between 92 up to 96%. Blood pressure is 122/60, patient is not in any distress, sitting at a bedside chair. WBC is 5.7 hemoglobin is 9.7. Basic metabolic profile is normal except for bicarb of 45. Chest x-ray is showing improvement in her interstitial edema, but she seems to have more right lower lobe atelectasis, overall there is definite improvement in the chest x-ray appearance and in her CHF appearance. Reevaluated today on 01/31/2023, patient is now on BiPAP, apparently she developed some obtundation early this morning and she had to be placed on BiPAP although the patient was refusing to have it on. She is on 50% 11/02, tidal volumes are ranging between 250 and 350. Patient does not seem to be in any distress. Remains on diuretics, and bronchodilators, patient is expected to be vaguely discharged to a rehab facility. Patient may benefit from BiPAP on outpatient basis and I explained to the daughter that this may be of value as long as she is willing to use it. No labs were done today. Remind you her pro calcitonin level on admission was 0.07. Antibiotics were discontinued. Objective - Vital Signs Vital signs: Vital Signs Temp 98.8 F 01/31/23 09:35 Pulse 69 01/31/23 11:15 Resp 16 01/31/23 11:15 BP 172/72 01/31/23 11:15 Pulse Ox 99 01/31/23 11:15 FiO2 50 01/31/23 11:15 Intake & Output 01/30/23 01/31/23 01/31/23 18:59 06:59 18:59 Intake Total 460 580 Output Total 400 400 Balance 60 180 Intake: Oral 460 580 Output: Urine 400 400 Other: Voiding Method Indwelling Catheter External Catheter External Catheter # Voids 1 - Exam Physical Exam: Revealed a 72-year-old female in no distress, presently on BiPAP. Head: Atraumatic, normocephalic. HEENT:[Neck is supple.] [No neck masses.] [No thyromegaly.] [No JVD.] Chest: Symmetrical chest expansion, diminished breath sounds at the bases , no crackles. Cardiac Exam: Distant S1 and S2. no S3 gallop, no murmur.] Abdomen: [Soft, nontender, no megaly, no rebound, no guarding, normal bowel sounds.] Extremities: [No clubbing, no edema, no cyanosis.] Neurological Exam: [No focal neurologic deficit.] Alert oriented 3. Psychiatric: Normal mood affect and normal mental status examination. Skin: No rashes. - Labs CBC & Chem 7: 01/30/23 05:30 01/30/23 05:30 Assessment and Plan Assessment: Impression: Acute on chronic hypoxic and hypercapnic respiratory failure, secondary to underlying COPD and COPD exacerbation as well as underlying acute congestive heart failure. Preserved LV function ejection fraction of 50-55% Benign essential hypertension Acute exacerbation of COPD Dyslipidemia History of Parkinson's disease Acute metabolic encephalopathy secondary to CO2 narcosis. Resolved. Recommendation: Continue diuretics and bronchodilators. Continue updrafts Continue Symbicort Consider home BiPAP. With the same settings, to be used as needed. Continue GI and DVT prophylaxis Agree with discharge to rehab facility.. We will continue to follow Time with Patient: Less than 30
[2023-01-31] MEDS: PREGABALIN 75 MG CAP PO SCH (22:04)
[2023-02-01] MEDS: HEPARIN SODIUM,PORCINE/PF 5,000 UNIT/0.5 ML SYRINGE SQ SCH ×3 (03:46→17:22)
[2023-02-01] MEDS: HYDROcodone/APAP 5-325MG 1 EACH TAB PO SCH ×3 (05:27→17:21)
[2023-02-01] MEDS: SYMBICORT 160-4.5 MCG INHALER INHALATION SCH ×2 (08:30→21:22)
[2023-02-01 08:51] LABS: Basophils % (A) 1 %; Eosinophils % (A) 1 %; HCT 31.1 % (34.0-46.0); HGB 9.6 gm/dL (11.4-16.0); Hypochromasia Moderate; Lymphocytes # (A) 1.4 k/uL (1.0-4.8); Lymphocytes % (A) 26 %; MCH 28.1 pg (25.0-35.0); MCHC 30.8 g/dL (31.0-37.0); MCV 91.1 fL (80.0-100.0); Mean Platelet Volume 9.2; Monocytes # (A) 0.3 k/uL (0-1.0); Monocytes % (A) 5 %; Neutrophils # (A) 3.7 k/uL (1.3-7.7); Neutrophils % (A) 66 %; Platelet Count 170 k/uL (150-450); RBC 3.42 m/uL (3.80-5.40); RDW 14.2 % (11.5-15.5); WBC 5.6 k/uL (3.8-10.6)
[2023-02-01 08:59] LABS: African American GFR (CKD) >90 (>60 ml/min/1.73 sqM); Blood Urea Nitrogen 21 mg/dL (7-17); Calcium 8.2 mg/dL (8.4-10.2); Chloride 93 mmol/L (98-107); Glucose 79 mg/dL (74-99); Magnesium 2.2 mg/dL (1.6-2.3); Non-African American GFR(CKD) 87 (>60 ml/min/1.73 sqM); Potassium 3.6 mmol/L (3.5-5.1); Sodium 142 mmol/L (137-145)
[2023-02-01 09:06] LABS: Anion Gap 5 mmol/L
[2023-02-01 09:12] LABS: Carbon Dioxide 44 mmol/L (22-30)
[2023-02-01] MEDS: ISOSORBIDE MONONITRATE ER 30 MG TAB.ER.24H PO SCH (12:04)
[2023-02-01] MEDS: acetaZOLAMIDE 250 MG TAB PO SCH ×2 (12:04→22:19)
[2023-02-01] MEDS: predniSONE 20 MG TAB PO SCH (12:05)
[2023-02-01] MEDS: ATORVASTATIN 40 MG TAB PO SCH (12:05)
[2023-02-01] MEDS: carvediloL 12.5 MG TAB PO SCH ×2 (12:05→17:21)
[2023-02-01] MEDS: CHOLECALCIFEROL 25 MCG (1000 IU) TABLET PO SCH (12:05)
[2023-02-01] MEDS: FUROSEMIDE 40 MG TAB PO SCH ×2 (12:05→17:21)
[2023-02-01] MEDS ORDERED: ARTIFICIAL TEARS-HYPROMELLOSE DROPS 15 ML BTL BOTH EYES PRN (13:13)
--- NOTE | 2023-02-01 13:34 | P.PN ---
Subjective Progress Note Date: 02/01/23 Principal diagnosis: Acute on chronic hypoxic and hypercapnic respiratory failure, secondary to underlying COPD and COPD exacerbation as well as underlying acute congestive heart failure. This is a 72-year-old female known history of COPD, no history of chronic hypoxic respiratory failure, maintaining traction at home at 3-4 L via nasal cannula. History of hypertension, Parkinson's disease, patient lives in [place], she is not being followed by pulmonary specialists. Few days ago, the patient was admitted to [facility] with mostly symptoms of shortness of breath and cough. Patient was found to have congestive heart failure based on her chest x-ray/pulmonary edema. Patient was treated with diuretics, steroids, and bronchodilators. While at [facility], patient developed worsening obtundation, and worsening hypercapnia. Her pCO2 was as high as 85, however her pH remained relatively acceptable in the range of 7.35. Patient was transferred to our facility at [facility], upon admission she was placed on BiPAP, with significant improvement in her pCO2 down to 66, with a pH of 7.47. Based on her blood gases, the patient obviously has chronic hypercapnia with excellent metabolic compensation, her bicarb is 47 today on the electrolytes. Chest x-ray showed evidence of congestive heart failure, pro-calcitonin was 0.07, no evidence of pneumonia. No evidence of leukocytosis on her CBC. Clinically the patient is responding well to treatment with bronchodilators and to treatment with diuretics. BNP level on admission was 1540 Reevaluated today on 01/30/2023, patient is feeling better today, breathing easier. Daughter is at bedside, patient is on 3 L nasal cannula and O2 sats is 90 ranging between 92 up to 96%. Blood pressure is 122/60, patient is not in any distress, sitting at a bedside chair. WBC is 5.7 hemoglobin is 9.7. Basic metabolic profile is normal except for bicarb of 45. Chest x-ray is showing improvement in her interstitial edema, but she seems to have more right lower lobe atelectasis, overall there is definite improvement in the chest x-ray appearance and in her CHF appearance. Reevaluated today on 01/31/2023, patient is now on BiPAP, apparently she developed some obtundation early this morning and she had to be placed on BiPAP although the patient was refusing to have it on. She is on 50% 10/23, tidal volumes are ranging between 250 and 350. Patient does not seem to be in any distress. Remains on diuretics, and bronchodilators, patient is expected to be vaguely discharged to a rehab facility. Patient may benefit from BiPAP on outpatient basis and I explained to the daughter that this may be of value as long as she is willing to use it. No labs were done today. Remind you her pro calcitonin level on admission was 0.07. Antibiotics were discontinued. Reevaluated today on 02/01/2023, patient remains on BiPAP, percent FiO2, 12/5, seems to be tolerating the BiPAP quite well. Discharge planning to a rehab facility is in progress. Hoping we can get the patient to have BiPAP at home or at the rehab facility that she is going to. This will need to be used as ne eded. Overall the patient is improving, responding well to bronchodilators and to diuretics. WBC count is 5.6 hemoglobin is 9.6 electrolytes are normal bicarb is 44 which is expected. Renal profile is normal Objective - Vital Signs Vital signs: Vital Signs Temp 98.1 F 02/01/23 09:35 Pulse 72 02/01/23 11:45 Resp 16 02/01/23 11:45 BP 164/57 02/01/23 11:45 Pulse Ox 97 02/01/23 11:45 FiO2 50 02/01/23 08:35 Intake & Output 01/31/23 02/01/23 02/01/23 18:59 06:59 18:59 Intake Total 938 358 Output Total 500 600 Balance 438 -600 358 Weight 69 kg Intake: Oral 938 358 Output: Urine 500 600 Other: Voiding Method External Catheter External Catheter External Catheter - Exam Physical Exam: Revealed a 72-year-old female in no distress, on BiPAP. 10/23/50% Head: Atraumatic, normocephalic. HEENT:[Neck is supple.] [No neck masses.] [No thyromegaly.] [No JVD.] Chest: Symmetrical chest expansion, diminished breath sounds at the bases , no crackles. Cardiac Exam: Distant S1 and S2. no S3 gallop, no murmur.] Abdomen: [Soft, nontender, no megaly, no rebound, no guarding, normal bowel sounds.] Extremities: [No clubbing, no edema, no cyanosis.] Neurological Exam: [No focal neurologic deficit.] Alert oriented 3. Psychiatric: Normal mood affect and normal mental status examination. Skin: No rashes. - Labs CBC & Chem 7: 02/01/23 07:49 02/01/23 07:49 Labs: Abnormal Lab Results - Last 24 Hours (Table) 02/01/23 02/01/23 Range/Units 07:49 07:49 RBC 3.42 L (3.80-5.40) m/uL Hgb 9.6 L (11.4-16.0) gm/dL Hct 31.1 L (34.0-46.0) % MCHC 30.8 L (31.0-37.0) g/dL Chloride 93 L (98-107) mmol/L Carbon Dioxide 44 H* (22-30) mmol/L BUN 21 H (7-17) mg/dL Calcium 8.2 L (8.4-10.2) mg/dL Assessment and Plan Assessment: Impression: Acute on chronic hypoxic and hypercapnic respiratory failure, secondary to underlying COPD and COPD exacerbation as well as underlying acute congestive heart failure. Preserved LV function ejection fraction of 50-55% Benign essential hypertension Acute exacerbation of COPD Dyslipidemia History of Parkinson's disease Acute metabolic encephalopathy secondary to CO2 narcosis. Resolved. Recommendation: Continue diuretics presently on Lasix 40 mg by mouth twice a day. Prednisone 40 mg taper over the next 2 weeks Continue updrafts Continue Symbicort home BiPAP If approved by her insurance. Continue GI and DVT prophylaxis Agree with discharge to rehab facility.. We will continue to follow Time with Patient: Less than 30
[2023-02-01] MEDS: PREGABALIN 75 MG CAP PO SCH (22:19)
[2023-02-02] MEDS: HEPARIN SODIUM,PORCINE/PF 5,000 UNIT/0.5 ML SYRINGE SQ SCH ×2 (01:45→08:27)
[2023-02-02] MEDS: HYDROcodone/APAP 5-325MG 1 EACH TAB PO SCH ×2 (01:46→11:06)
[2023-02-02 05:05] VITALS: RESP 18
--- NOTE | 2023-02-02 05:46 | P.PN ---
Subjective Progress Note Date: 02/01/23 72-year-old woman with medical history of COPD with chronic respiratory failure requiring 3-4 L nasal cannula, CHF, Parkinson's disease, hypertension, hyperlipidemia presented a [facility] with dyspnea. Patient was admitted to [facility] in 01/26 with hypercarbic respiratory failure from presumed COPD exacerbation versus CHF exacerbation. At that time, there workup demonstrated a chest x-ray with pulmonary edema, normal troponin and baseline EKG and a negative respiratory viral panel. Patient was subsequent started on 40 mg of Lasix IV twice a day, steroids, DuoNeb's. On 01/27, patient had some improvement and reported dyspnea, however, today, patient was noted to be increasingly obtunded. Therefore, provider in the outside facility repeated ABG which demonstrate a pH of 7.35, pCO2 of 85. Patient was subsequently started on BiPAP at 12/5 with an FiO2 of 50%, and our facility was contacted for transfer for further management. Patient also had a repeat chest x-ray which showed findings of ongoing pulmonary edema consistent with admission chest x- ray. Upon initial evaluation, patient was hemodynamically stable, but obtunded. ABG was ordered which showed a pH of 7.46, pCO2 of 66, pO2 of 39, however, while the ABG was running, it was noted by respiratory therapy that patient's oxygen had not been connected appropriately and she had been essentially on room air since her arrival proximally one hour before. Patient was subsequently resumed on BiPAP at an FiO2 of 50%, 12/5 and was pulling tidal volumes between 250 and 350. Patient was started on standing DuoNeb nebulizers, prednisone 40 mg daily, azithromycin 500 mg daily, Lasix 40 mg twice a day. By the following day, patient was weaned back to her baseline oxygen requirement of 3 L of nasal cannula but still had dyspnea with minimal exertion. Echocardiogram was completed and demonstrated preserved ejection fraction, mild to moderate mitral regurgitation. Patient's pro-calcitonin return to 0.06, and antibiotics were discontinued. Patient's BNP returned at 1560 consistent with volume overload. Patient was seen by PT/OT who recommended rehab. Patient was seen and examined. Currently on BiPAP 12/5, rate of 12, FiO2 50%. Sleeping, difficult to arouse. Gen: awake, alert HEENT: normocephalic, atraumatic, good hearing acuity, moist mucous membranes Resp: good air exchange, breathing comfortably with no accessory muscle use CVS: good distal perfusion x 4, GI: soft, NTTP, ND : no SPT, no CVAT, garg catheter is present MSK: no pitting edema, no clubbing Neuro: non-focal, moving all extremities Psych: Sleeping, difficult to arouse. #Acute hypoxemic and hypercarbic respiratory failure superimposed on chronic hypoxemic and hypercarbic respiratory failure #Acute on chronic congestive heart failure exacerbation, ejection fraction unknown #COPD with mild exacerbation #Hypertension #Hyperlipidemia #Parkinson's disease Based on my assessment of this patient, this patient meets a moderate complexity level of care. I have reviewed the following php consultant notes: Pulmonology note , continue diuretics, prednisone taper over 2 weeks, continue updraft and Symbicort, home BiPAP if approved by insurance. I have reviewed the results of the following tests: CBC shows hemoglobin 9.6. BMP shows chloride of 93, bicarbonate 44, BUN of 21, calcium of 8.2. I have ordered the following tests: None. I have discussed the care of this patient with the following independent historian: None. I have independently interpreted the following test below: None. I have discussed the management of this patient with the following physician: None. This patient has a moderate risk of morbidity due to the following reasons: Patient has a diastolic CHF with severe exacerbation leading to acute hypoxemic and hypercarbic respiratory failure superimposed on chronic hypoxemic and hypercarbic respiratory failure which poses a threat to life or bodily function. Patient initially denied SNF by insurance. Peer to peer to be done at 3PM. Objective - Vital Signs Vital signs: Vital Signs Temp 98.1 F 02/01/23 09:35 Pulse 72 02/01/23 11:45 Resp 16 02/01/23 11:45 BP 164/57 02/01/23 11:45 Pulse Ox 97 02/01/23 11:45 FiO2 50 02/01/23 08:35 Intake & Output 01/31/23 02/01/23 02/01/23 18:59 06:59 18:59 Intake Total 938 476 Output Total 500 600 Balance 438 -600 476 Weight 69 kg Intake: Oral 938 476 Output: Urine 500 600 Other: Voiding Method External Catheter External Catheter External Catheter - Labs CBC & Chem 7: 02/01/23 07:49 02/01/23 07:49 Labs: Abnormal Lab Results - Last 24 Hours (Table) 02/01/23 02/01/23 Range/Units 07:49 07:49 RBC 3.42 L (3.80-5.40) m/uL Hgb 9.6 L (11.4-16.0) gm/dL Hct 31.1 L (34.0-46.0) % MCHC 30.8 L (31.0-37.0) g/dL Chloride 93 L (98-107) mmol/L Carbon Dioxide 44 H* (22-30) mmol/L BUN 21 H (7-17) mg/dL Calcium 8.2 L (8.4-10.2) mg/dL
--- NOTE | 2023-02-02 06:01 | P.DS ---
Providers Date of admission: 01/28/23 13:15 Expected date of discharge: 02/02/23 Attending physician: Fadi Pulliam MD Consults: 01/28/23 17:11 Consult Physician Routine Consulting Provider: Erich Wood Consult Reason/Comments: hypercarbic respiratory failure Do you want consulting provider notified?: Yes Primary care physician: Physician Nonstaff Hospital Course: 72-year-old woman with medical history of COPD with chronic respiratory failure requiring 3-4 L nasal cannula, CHF, Parkinson's disease, hypertension, hyperlipidemia presented a [facility] with dyspnea. Patient was admitted to [facility] in 01/26 with hypercarbic respiratory failure from presumed COPD exacerbation versus CHF exacerbation. At that time, there workup demonstrated a chest x-ray with pulmonary edema, normal troponin and baseline EKG and a negative respiratory viral panel. Patient was subsequent started on 40 mg of Lasix IV twice a day, steroids, DuoNeb's. On 01/27, patient had some improvement and reported dyspnea, however, today, patient was noted to be increasingly obtunded. Therefore, provider in the outside facility repeated ABG which demonstrate a pH of 7.35, pCO2 of 85. Patient was subsequently started on BiPAP at 12/5 with an FiO2 of 50%, and our facility was contacted for transfer for further management. Patient also had a repeat chest x-ray which showed findings of ongoing pulmonary edema consistent with admission chest x- ray. Upon initial evaluation, patient was hemodynamically stable, but obtunded. ABG was ordered which showed a pH of 7.46, pCO2 of 66, pO2 of 39, however, while the ABG was running, it was noted by respiratory therapy that patient's oxygen had not been connected appropriately and she had been essentially on room air since her arrival proximally one hour before. Patient was subsequently resumed on BiPAP at an FiO2 of 50%, 12/5 and was pulling tidal volumes between 250 and 350. Patient was started on standing DuoNeb nebulizers, prednisone 40 mg daily, azithromycin 500 mg daily, Lasix 40 mg twice a day. By the following day, patient was weaned back to her baseline oxygen requirement of 3 L of nasal cannula but still had dyspnea with minimal exertion. Echocardiogram was completed and demonstrated preserved ejection fraction, mild to moderate mitral regurgitation. Patient's pro-calcitonin return to 0.06, and antibiotics were discontinued. Patient's BNP returned at 1560 consistent with volume overload. Patient was seen by PT/OT who recommended rehab. I was able to do a peer to peer yesterday with insurance yesterday and got her approved for SNF. She is scheduled to go to [facility] today. Patient was seen and examined. Currently on BiPAP 12/5, rate of 12, FiO2 50%. Patient sleepy and difficulty to arouse but wakes up to prompting. Pertinent studies include echocardiogram, chest x-ray. Patient will be discharges to SNF with the following instructions: Patient will need BiPAP at 12/5, FiO2 of 50% while sleeping. She will need 2-3L nasal cannula to maintain O2 saturation > 92% while awake. Take all medications as advised. Follow up with PCP within 1-2 days of discharge. Follow up with Cardiology and Pulmonology within 1 week of discharge. Take all medications as necessary. Diet: low salt, cardiac. General: non toxic, no distress, appears at stated age Derm: warm, dry Head: atraumatic, normocephalic, symmetric, poor dentition Eyes: EOMI, no lid lag, anicteric sclera Mouth: no lip lesion, mucus membranes moist Cardiovascular: S1S2 reg, no murmur, positive posterior tibial pulse bilateral, Lungs: Decreased breath sounds bilateral, no rhonchi, no rales , no accessory muscle use Abdominal: soft, nontender to palpation, no guarding, no appreciable organomegaly Ext: no gross muscle atrophy, no edema, no contractures Neuro: no focal neuro deficits Psych: Alert, oriented, appropriate affect Discharge diagnosis: #Acute hypoxemic and hypercarbic respiratory failure superimposed on chronic hypoxemic and hypercarbic respiratory failure #Acute on chronic congestive heart failure exacerbation, ejection fraction unknown #COPD with mild exacerbation #Hypertension #Hyperlipidemia #Parkinson's disease This complex discharge took 45 minutes to complete. Patient Condition at Discharge: Stable Plan - Discharge Summary Discharge Rx Participant: No New Discharge Prescriptions: New Budesonide-Formot 160-4.5 Mcg [Symbicort 160-4.5 Mcg Inhaler] 2 puff INHALATION RT-BID #1 each acetaZOLAMIDE [Diamox] 250 mg PO BID tab Pregabalin [Lyrica] 150 mg PO HS #3 cap Acetaminophen Tab [Tylenol] 650 mg PO Q6HR PRN tab PRN Reason: Mild Pain (Scale 1 To 3) HYDROcodone/APAP 5-325MG [Hammond 5-325] 1 each PO Q8H PRN #9 tab PRN Reason: Pain Continue Atorvastatin [Lipitor] 40 mg PO DAILY Albuterol Inhaler [Ventolin Hfa Inhaler] 1 - 2 puff INHALATION RT-Q6H PRN PRN Reason: Shortness Of Breath carvediloL [Coreg] 12.5 mg PO BID Fluticasone Nasal [place] [Flonase Nasal [place]] 1 spray EA NOSTRIL DAILY PRN PRN Reason: Allergy Symptoms Cholecalciferol [Vitamin D3 (25 Mcg = 1000 Iu)] 50 mcg PO DAILY Pregabalin [Lyrica] 150 mg PO HS #3 cap HYDROcodone/APAP 5-325MG [Hammond 5-325] 1 tab PO Q8H #9 tab Isosorbide Mononitrate ER [Imdur] 30 mg PO DAILY polyethylene glycoL 3350 [Miralax] 17 gm PO TID PRN PRN Reason: Constipation rOPINIRole HCL [Requip] 0.5 mg PO QID Nitroglycerin Sl Tabs [Nitrostat] 0.4 mg SUBLINGUAL Q5M PRN PRN Reason: Chest Pain Changed Furosemide [Lasix] 40 mg PO BID #60 tab Discontinued Ibuprofen [Motrin Ib] 600 mg PO Q6H PRN PRN Reason: Pain Or Fever > 100.5 Discharge Medication List Albuterol Inhaler [Ventolin Hfa Inhaler] 1 - 2 puff INHALATION RT-Q6H PRN 01/28/23 [History] Atorvastatin [Lipitor] 40 mg PO DAILY 01/28/23 [History] Cholecalciferol [Vitamin D3 (25 Mcg = 1000 Iu)] 50 mcg PO DAILY 01/28/23 [History] Fluticasone Nasal [place] [Flonase Nasal [place]] 1 spray EA NOSTRIL DAILY PRN 01/28/23 [History] Isosorbide Mononitrate ER [Imdur] 30 mg PO DAILY 01/28/23 [History] Nitroglycerin Sl Tabs [Nitrostat] 0.4 mg SUBLINGUAL Q5M PRN 01/28/23 [History] carvediloL [Coreg] 12.5 mg PO BID 01/28/23 [History] polyethylene glycoL 3350 [Miralax] 17 gm PO TID PRN 01/28/23 [History] rOPINIRole HCL [Requip] 0.5 mg PO QID 01/28/23 [History] Acetaminophen Tab [Tylenol] 650 mg PO Q6HR PRN tab 01/31/23 [Rx] Budesonide-Formot 160-4.5 Mcg [Symbicort 160-4.5 Mcg Inhaler] 2 puff INHALATION RT-BID #1 each 01/31/23 [Rx] Furosemide [Lasix] 40 mg PO BID #60 tab 01/31/23 [Rx] HYDROcodone/APAP 5-325MG [Hammond 5-325] 1 tab PO Q8H #9 tab 01/31/23 [Rx] Pregabalin [Lyrica] 150 mg PO HS #3 cap 01/31/23 [Rx] HYDROcodone/APAP 5-325MG [Hammond 5-325] 1 each PO Q8H PRN #9 tab 02/02/23 [Rx] Pregabalin [Lyrica] 150 mg PO HS #3 cap 02/02/23 [Rx] acetaZOLAMIDE [Diamox] 250 mg PO BID tab 02/02/23 [Rx] Follow up Appointment(s)/Referral(s): Evan Carmona MD [STAFF PHYSICIAN] - 1 Week Joni Scott MD [STAFF PHYSICIAN] - 1 Week Nonstaff,Physician [Primary Care Provider] - 1-2 Days Activity/Diet/Wound Care/Special Instructions: Patient will need BiPAP at 12/5, FiO2 of 50% while sleeping. She will need 2-3L nasal cannula to maintain O2 saturation > 92% while awake. Take all medications as advised. Follow up with PCP within 1-2 days of discharge. Follow up with Cardiology and Pulmonology within 1 week of discharge. Take all medications as necessary. Diet: low salt, cardiac. Discharge Disposition: TRANSFER TO SNF/ECF
[2023-02-02] MEDS: carvediloL 12.5 MG TAB PO SCH (06:34)
[2023-02-02] MEDS: SYMBICORT 160-4.5 MCG INHALER INHALATION SCH (08:04)
[2023-02-02] MEDS: predniSONE 20 MG TAB PO SCH (08:27)
[2023-02-02] MEDS: ATORVASTATIN 40 MG TAB PO SCH (08:27)
[2023-02-02] MEDS: CHOLECALCIFEROL 25 MCG (1000 IU) TABLET PO SCH (08:27)
[2023-02-02] MEDS: acetaZOLAMIDE 250 MG TAB PO SCH (08:27)
[2023-02-02] MEDS: FUROSEMIDE 40 MG TAB PO SCH (08:27)
[2023-02-02] MEDS: ISOSORBIDE MONONITRATE ER 30 MG TAB.ER.24H PO SCH (08:27)
[2023-02-02 10:40] VITALS: BP 120/62; PULSE 70; TEMP 98.5
[2023-02-02 11:26] VITALS: BMI 26.0
[2023-02-02] MEDS: ALBUTEROL HFA INHALER INHALATION PRN (11:43)
--- NOTE | 2023-02-02 13:34 | P.PN ---
Subjective Progress Note Date: 02/02/23 Principal diagnosis: Acute on chronic hypoxic and hypercapnic respiratory failure, secondary to underlying COPD and COPD exacerbation as well as underlying acute congestive heart failure. This is a 72-year-old female known history of COPD, no history of chronic hypoxic respiratory failure, maintaining traction at home at 3-4 L via nasal cannula. History of hypertension, Parkinson's disease, patient lives in [place], she is not being followed by pulmonary specialists. Few days ago, the patient was admitted to [facility] with mostly symptoms of shortness of breath and cough. Patient was found to have congestive heart failure based on her chest x-ray/pulmonary edema. Patient was treated with diuretics, steroids, and bronchodilators. While at [facility], patient developed worsening obtundation, and worsening hypercapnia. Her pCO2 was as high as 85, however her pH remained relatively acceptable in the range of 7.35. Patient was transferred to our facility at [facility], upon admission she was placed on BiPAP, with significant improvement in her pCO2 down to 66, with a pH of 7.47. Based on her blood gases, the patient obviously has chronic hypercapnia with excellent metabolic compensation, her bicarb is 47 today on the electrolytes. Chest x-ray showed evidence of congestive heart failure, pro-calcitonin was 0.07, no evidence of pneumonia. No evidence of leukocytosis on her CBC. Clinically the patient is responding well to treatment with bronchodilators and to treatment with diuretics. BNP level on admission was 1540 Reevaluated today on 01/30/2023, patient is feeling better today, breathing easier. Daughter is at bedside, patient is on 3 L nasal cannula and O2 sats is 90 ranging between 92 up to 96%. Blood pressure is 122/60, patient is not in any distress, sitting at a bedside chair. WBC is 5.7 hemoglobin is 9.7. Basic metabolic profile is normal except for bicarb of 45. Chest x-ray is showing improvement in her interstitial edema, but she seems to have more right lower lobe atelectasis, overall there is definite improvement in the chest x-ray appearance and in her CHF appearance. Reevaluated today on 01/31/2023, patient is now on BiPAP, apparently she developed some obtundation early this morning and she had to be placed on BiPAP although the patient was refusing to have it on. She is on 50% 12/5, tidal volumes are ranging between 250 and 350. Patient does not seem to be in any distress. Remains on diuretics, and bronchodilators, patient is expected to be vaguely discharged to a rehab facility. Patient may benefit from BiPAP on outpatient basis and I explained to the daughter that this may be of value as long as she is willing to use it. No labs were done today. Remind you her pro calcitonin level on admission was 0.07. Antibiotics were discontinued. Reevaluated today on 02/01/2023, patient remains on BiPAP, percent FiO2, 12/5, seems to be tolerating the BiPAP quite well. Discharge planning to a rehab facility is in progress. Hoping we can get the patient to have BiPAP at home or at the rehab facility that she is going to. This will need to be used as ne eded. Overall the patient is improving, responding well to bronchodilators and to diuretics. WBC count is 5.6 hemoglobin is 9.6 electrolytes are normal bicarb is 44 which is expected. Renal profile is normal Reevaluated today on 02/02/2023, patient continues to do well, she is now on nasal cannula, she would however have BiPAP at the rehab facility she is going to. Patient is being discharged today, she will be discharged on bronchodilators, oxygen, and on diuretics. She should have follow-up on outpatient basis. Objective - Vital Signs Vital signs: Vital Signs Temp 98.5 F 02/02/23 08:00 Pulse 70 02/02/23 08:00 Resp 18 02/02/23 08:00 BP 120/62 02/02/23 08:00 Pulse Ox 98 02/02/23 08:08 FiO2 50 02/02/23 04:19 Intake & Output 02/01/23 02/02/23 02/02/23 18:59 06:59 18:59 Intake Total 594 358 Output Total 500 800 Balance 94 -800 358 Weight 71 kg 71 kg Intake: Oral 594 358 Output: Urine 500 800 Other: Voiding Method External Catheter External Catheter External Catheter - Exam Physical Exam: Revealed a 72-year-old female in no distress, on 3 L nasal cannula, O2 saturation 98% Head: Atraumatic, normocephalic. HEENT:[Neck is supple.] [No neck masses.] [No thyromegaly.] [No JVD.] Chest: Symmetrical chest expansion, diminished breath sounds at the bases , no crackles. Cardiac Exam: Distant S1 and S2. no S3 gallop, no murmur.] Abdomen: [Soft, nontender, no megaly, no rebound, no guarding, normal bowel so unds.] Extremities: [No clubbing, no edema, no cyanosis.] Neurological Exam: [No focal neurologic deficit.] Alert oriented 3. Psychiatric: Normal mood affect and normal mental status examination. Skin: No rashes. - Labs CBC & Chem 7: 02/01/23 07:49 02/01/23 07:49 Assessment and Plan Assessment: Impression: Acute on chronic hypoxic and hypercapnic respiratory failure, secondary to underlying COPD and COPD exacerbation as well as underlying acute congestive heart failure. Preserved LV function ejection fraction of 50-55% Benign essential hypertension Acute exacerbation of COPD Dyslipidemia History of Parkinson's disease Acute metabolic encephalopathy secondary to CO2 narcosis. Resolved. Recommendation: Agree with discharge planning Prednisone 40 mg taper over the next 2 weeks Continue updrafts Continue Symbicort Follow-up on outpatient basis Time with Patient: Less than 30
== END 2023-02-02 13:00 | DRG 291 ==
LOC: 3SCARD 13:15
PROVIDERS: ADMIT Student in an Organized Health Care Education/Training Program; ATTEND Student in an Organized Health Care Education/Training Program
PROC: 5A09357 Assistance with Respiratory Ventilation, Less than 24 Consecutive Hours, Continuous Positive Airway Pressure (ICD-10-PCS; principal; 2023-01-28)
DX: I11.0 Hypertensive heart disease with heart failure (principal); G93.41 Metabolic encephalopathy; J96.21 Acute and chronic respiratory failure with hypoxia; J96.22 Acute and chronic respiratory failure with hypercapnia; I50.33 Acute on chronic diastolic (congestive) heart failure; E87.0 Hyperosmolality and hypernatremia; J44.1 Chronic obstructive pulmonary disease with (acute) exacerbation; I27.20 Pulmonary hypertension, unspecified; G20 Parkinson's disease; E78.5 Hyperlipidemia, unspecified; I08.1 Rheumatic disorders of both mitral and tricuspid valves; R53.81 Other malaise; Z88.5 Allergy status to narcotic agent; Z88.0 Allergy status to penicillin; Z88.8 Allergy status to other drugs, medicaments and biological substances; I25.2 Old myocardial infarction; Z79.899 Other long term (current) drug therapy; Z86.73 Personal history of transient ischemic attack (TIA), and cerebral infarction without residual deficits; Z87.891 Personal history of nicotine dependence
CPT/HCPCS: 36600; 71045; 80048; 80053; 80076; 82805; 83605; 83735; 83880; 84145; 85025; 85610; 85730; 93306; 94640; 94660; 94760